=== PATIENT | female | born 1995 | race Caucasian/White ===

== ENCOUNTER 2018-10-06 13:09 | Emergency (ER) | payer OTHER ==
[~2018-10-06] VITALS: Ht 162.6 cm; Wt 56.8 kg
[2018-10-06 13:37] VITALS: TEMP 99.2
[2018-10-06] MEDS ORDERED: DUREZOL 5 ML5 ML OU (14:29)
[2018-10-06] MEDS ORDERED: REFRESH TEARS 330 ML OP (14:30)
[2018-10-06 14:59] LABS: COLLECTION METHOD CLEAN CATCH
[2018-10-06 15:07] LABS: PH 6 (5-8); SQUAMOUS EPITHELIAL 0-2 /hpf; URINE APPEARANCE Clear; URINE BACTERIA Rare /hpf; URINE BILIRUBIN Negative (NEGATIVE); URINE BLOOD Negative (NEGATIVE); URINE COLOR Straw; URINE GLUCOSE Negative (NEGATIVE); URINE KETONE 1+ (NEGATIVE); URINE LEUKOCYTE ESTERASE Negative (NEGATIVE); URINE NITRATE Negative (NEGATIVE); URINE PROTEIN(semi-quant) Negative (NEGATIVE); URINE RBC 0-2 /hpf; URINE UROBILINOGEN Negative (NEGATIVE)
[2018-10-06 15:40] LABS: BASO % 0.2 % (0.0-2.0); EOS % 0.3 % (0-4.0); GRAN % 76.3 % (42.2-75.2); HEMOGLOBIN 11.7 g/dl (12.0-15.0); LYMPH # 1.5 (1.2-3.4); LYMPH % 16.5 % (20.0-51.0); MEAN CELL VOLUME 91 fl (80.0-95.0); MEAN CORPUSCULAR HEMOGLOBIN 30 pg (26.0-32.0); MEAN CORPUSCULAR HGB CONC 33 g/dl (33.0-37.0); MEAN PLATELET VOLUME 9.3 fl (7.4-10.4); MONO # 0.6 (0.1-0.6); MONO % 6.5 % (1.7-9.3); PLATELET COUNT 327 K/mm3 (130-400); RED BLOOD COUNT 3.97 M/mm3 (4.10-5.30); REDCELL DISTRIBUTION WIDTH-CV 12.4 % (11.5-14.5)
[2018-10-06 15:56] LABS: ALBUMIN 4.2 gm/dL (3.5-5.0); BILIRUBIN,TOTAL 0.9 mg/dL (0.0-1.0); CALCIUM 9.5 mg/dL (8.4-10.2); CREATININE, serum 0.53 mg/dL (0.52-1.25); POTASSIUM 4.1 mmol/L (3.4-5.0); TOTAL PROTEIN 7.3 gm/dL (6.4-8.2)
[2018-10-06 16:43] VITALS: BP 100/69; PULSE 70
== END 2018-10-06 16:46 | disposition home or self-care (01) ==
LOC: COL.ER 13:09
PROVIDERS: Nurse Practitioner Primary Care
DX: R07.81 Pleurodynia (principal)
CPT/HCPCS: J1885

== ENCOUNTER → 2019-01-22 | Outpatient (CLI) | payer SELFPAY ==
[~2019-01-22] MED LIST: DUREZOL 5 ML5 ML OU; REFRESH TEARS 330 ML OP
== END ==
LOC: COL.LAB 15:11
DX: K52.9 Noninfective gastroenteritis and colitis, unspecified (principal); R51 Headache